=== PATIENT | female | born 1945 | race American Indian/Alaskan Native ===

== ENCOUNTER 2016-11-04 05:50 | Emergency (ER) | payer MEDICARE, MEDICAID ==
[2016-11-04 05:55] VITALS: BMI 39.4
[2016-11-04 06:13] VITALS: RESP 16; TEMP 98.1
--- NOTE | 2016-11-04 06:28 | ED PDOC ---
Arrival/HPI - General Chief Complaint: Back Pain Time Seen by Provider: 11/04/16 05:52 - History of Present Illness Narrative History of Present Illness (Text): 11/04/16 06:27 Patient presents to the ED complaining of right upper quadrant pain and back pain times several days no nausea no vomiting no fever no chills no dizziness no dysuria no chest pain some shortness of breath there was no dysuria no dizziness no headache patient currently on pain medication at home not helping Past Medical History - Provider Review Nursing Documentation Reviewed: Yes - Infectious Disease Hx of Infectious Diseases: None - Tetanus Immunization Tetanus Immunization: Unknown - Cardiac Hx Hypertension: Yes - Pulmonary Hx Chronic Obstructive Pulmonary Disease (COPD): Yes - Neurological Hx Neurological Disorder: Yes Hx Dementia: Yes Hx Seizures: Yes (25 YEARS AGO) - HEENT Hx HEENT Disorder: Yes (uses glasses) Other/Comment: RIGHT MANDIBULAR MASS - Renal Hx Renal Disorder: Yes Other/Comment: ADRENAL MASS - Endocrine/Metabolic Hx Diabetes Mellitus Type 2: Yes - Hematological/Oncological Other/Comment: Multiple Myeloma - Integumentary Hx Dermatological Disorder: No - Musculoskeletal/Rheumatological Hx Falls: No - Gastrointestinal Hx Gastrointestinal Disorders: Yes (reflux) - Genitourinary/Gynecological Hx Reproductive Disorders: No - Psychiatric Hx Psychophysiologic Disorder: Yes Hx Anxiety: Yes Hx Depression: Yes Hx Substance Use: No Other/Comment: INSOMNIA,SMOKED CIGARETTES H/O - Past Surgical History Past Surgical History: No Previous - Surgical History Hx Cardiac Catheterization: Yes - Anesthesia Hx Anesthesia: Yes Hx Anesthesia Reactions: No Hx Malignant Hyperthermia: No - Suicidal Assessment Feels Threatened In Home Enviroment: No Family/Social History - Physician Review Nursing Documentation Reviewed: Yes Family/Social History: No Known Family HX Smoking Status: Former Smoker Hx Alcohol Use: Yes (H/O OF HEAVY DRINKING. QUIT) Hx Substance Use: No Hx Substance Use Treatment: No Allergies/Home Meds Allergies/Adverse Reactions: Allergies No Known Allergies Allergy (Verified 03/08/16 14:20) Home Medications: Home Meds Medication Instructions Recorded Confirmed Aspirin [Aspirin Chewable] 81 mg PO DAILY 11/04/16 11/04/16 Atorvastatin [Lipitor] 40 mg PO HS 11/04/16 11/04/16 Benzonatate 200 mg PO TID PRN 11/04/16 11/04/16 Furosemide [Lasix] 40 mg PO DAILY 11/04/16 11/04/16 Gabapentin [Neurontin] 200 mg PO Q8H 11/04/16 11/04/16 Metoclopramide [Reglan] 5 mg PO BID 11/04/16 11/04/16 Metoprolol Tartrate [Lopressor] 25 mg PO DAILY 11/04/16 11/04/16 Montelukast Sodium [Singulair] 10 mg PO DAILY 11/04/16 11/04/16 Naloxegol Oxalate [Movantik] 25 mg PO DAILY 11/04/16 11/04/16 Oxycodone HCl/Acetaminophen 1 each PO Q6H PRN 11/04/16 11/04/16 [Percocet 10-325 mg Tablet] Pantoprazole [Protonix] 40 mg PO DAILY 11/04/16 11/04/16 Ranolazine [Ranexa] 500 mg PO BID 11/04/16 11/04/16 Zolpidem [Ambien] 10 mg PO HS PRN 11/04/16 11/04/16 amLODIPine [Norvasc] 10 mg PO DAILY 11/04/16 11/04/16 clonazePAM [clonAZEPAM] 0.5 mg PO BID 11/04/16 11/04/16 Review of Systems - Physician Review All systems were reviewed & negative as marked: Yes - Review of Systems Constitutional: Normal Eyes: Normal ENT: Normal Respiratory: SOB Cardiovascular: Chest Pain Gastrointestinal: Abdominal Pain. absent: Diarrhea, Nausea, Vomiting Genitourinary Female: Normal Musculoskeletal: Normal Skin: Normal Neurological: Normal Endocrine: Normal Hemo/Lymphatic: Normal Psychiatric: Normal Physical Exam Vital Signs Reviewed: Yes Vital Signs Temp Pulse Resp BP Pulse Ox 11/04/16 08:53 73 16 132/84 99 11/04/16 06:12 98.1 F 75 16 136/80 98 Temperature: Afebrile Blood Pressure: Normal Pulse: Regular Respiratory Rate: Normal Appearance: Positive for: Well-Appearing, Non-Toxic, Comfortable Pain Distress: None Mental Status: Positive for: Alert and Oriented X 3 - Systems Exam Head: Present: Atraumatic, Normocephalic Pupils: Present: PERRL Extroacular Muscles: Present: EOMI Conjunctiva: Present: Normal Mouth: Present: Moist Mucous Membranes Neck: Present: Normal Range of Motion Respiratory/Chest: Present: Decreased Breath Sounds. No: Good Air Exchange, Respiratory Distress, Wheezes Cardiovascular: Present: Regular Rate and Rhythm, Normal S1, S2. No: Murmurs Abdomen: Present: Tenderness (ruq ), Normal Bowel Sounds. No: Rebound, Guarding Back: Present: Normal Inspection Upper Extremity: Present: Normal Inspection. No: Cyanosis, Edema Lower Extremity: Present: Normal Inspection. No: Edema Neurological: Present: GCS=15, CN II-XII Intact, Speech Normal Skin: Present: Warm, Dry, Normal Color. No: Rashes Psychiatric: Present: Alert, Oriented x 3, Normal Insight, Normal Concentration Medical Decision Making - Lab Interpretations Lab Results: 11/04/16 06:46 Lab Results 11/04/16 08:20: pO2 257 H, VBG pH 7.44 H, VBG pCO2 58.0, VBG HCO3 39.4 H, VBG Total CO2 41.2 H, VBG O2 Sat (Calc) 97.4 H, VBG Base Excess 12.7 H, VBG Potassium 3.2 L, Sodium 141.0, Chloride 106.0, Glucose 101, Lactate 1.0, FiO2 21.0, Venous Blood Potassium 3.2 L 11/04/16 06:50: Urine Color Yellow, Urine Appearance Clear, Urine pH 8.0, Ur Specific [place] 1.015, Urine Protein Negative, Urine Glucose (UA) Negative, Urine Ketones Negative, Urine Blood Negative, Urine Nitrate Negative, Urine Bilirubin Negative, Urine Urobilinogen 0.2, Ur Leukocyte Esterase Negative 11/04/16 06:46: WBC 3.5 L, RBC 3.25 L, Hgb 9.7 L, Hct 30.5 L, MCV 93.8, MCH 29.8 , MCHC 31.8, RDW 15.7 H, Plt Count 228, MPV 10.0, Gran % 68.9 H, Lymph % (Auto) 19.2 L, [place] % (Auto) 6.2 H, Eos % (Auto) 5.4 H, Baso % (Auto) 0.3, Gran # 2.44 , Lymph # 0.7 L, [place] # 0.2, Eos # 0.2, Baso # 0.01, PT 10.5, INR 0.97, APTT 28.3, pO2 163 H, VBG pH 7.30 L, VBG pCO2 83.0 H*, VBG HCO3 40.8 H, VBG Total CO2 43.3 H, VBG O2 Sat (Calc) 97.6 H, VBG Base Excess 10.8 H, VBG Potassium 4.0 , Sodium 141.0, Chloride 103.0, Glucose 106 H, Lactate 2.3 H, FiO2 21.0, Venous Blood Potassium 4.0 - RAD Interpretation Narrative RAD Interpretations (Text): 11/04/16 06:34 cardomegaly nad Radiology Orders: 11/04/16 06:15 GALL BLADDER [US] Stat 11/04/16 06:17 CHEST PORTABLE [RAD] Stat - EKG Interpretation EKG Interpretation (Text): 11/04/16 06:32 normal sinus rhythm rate76 normal ekg - Medication Orders Current Medication Orders: Sodium Chloride (Sodium Chloride 0.9%) 1,000 mls @ 80 mls/hr IV .[id number] [id number] Last Admin: 11/04/16 08:28 Dose: 80 MLS/HR eMAR Start Stop Document 11/04/16 08:28 [facility] (Rec: 11/04/16 08:28 [id number] Intravenous Solution Start Date 11/04/16 Start Time 08:20 Discontinued Medications Hydromorphone HCl (Dilaudid) 1 mg IVP STAT STA Stop: 11/04/16 06:31 Last Admin: 11/04/16 08:25 Dose: 1 MG IVP Administration Document 11/04/16 08:25 [facility] (Rec: 11/04/16 08:29 [id number] Charges for Administration # of IVP Administrations 1 Ondansetron HCl (Zofran Inj) 4 mg IVP STAT STA Stop: 11/04/16 06:31 Last Admin: 11/04/16 08:20 Dose: 4 MG IVP Administration Document 11/04/16 08:20 [facility] (Rec: 11/04/16 08:29 [id number]) Charges for Administration # of IVP Administrations 1 Pantoprazole Sodium (Protonix Inj) 40 mg IVP ONCE STA Stop: 11/04/16 06:31 Last Admin: 11/04/16 08:22 Dose: 40 MG IVP Administration Document 11/04/16 08:22 [facility] (Rec: 11/04/16 08:29 [facility] [id number]) Charges for Administration # of IVP Administrations 1 - Transfer of Care Patient signed out to Dr:: roe us and labs and dispo Disposition/Present on Arrival - Present on Arrival Any Indicators Present on Arrival: No History of DVT/PE: No History of Uncontrolled Diabetes: No Urinary Catheter: No History of Decub. Ulcer: No History Surgical Site Infection Following: None - Disposition Have Diagnosis and Disposition been Completed?: Yes Diagnosis: Abdominal pain Disposition Time: 07:00 Patient Problems: Current Active Problems Problem Status Diagnosed CHF (congestive heart failure) Acute COPD exacerbation Acute Condition: FAIR
[2016-11-04] MEDS ORDERED: HYDROmorphone 1 mg/ml ISec IVP STA ×2 (06:30→09:04)
[2016-11-04] MEDS ORDERED: Sodium Chloride 0.9% 1,000 ML IV SCH (06:30)
[2016-11-04 06:54] LABS: ADD MANUAL DIFF? NO
[2016-11-04 06:59] LABS: VENOUS BLOOD GAS BASE EXCESS 10.8 mmol/L (0.0-2.0)
[2016-11-04 07:18] LABS: BASO # 0.01 K/mm3 (0.0-2.0); BASO % 0.3 % (0.0-3.0); EOS # 0.2 (0.0-0.7); EOS % 5.4 % (1.5-5.0); GRAN # 2.44 (1.4-6.5); GRAN % 68.9 % (50.0-68.0); HEMATOCRIT 30.5 % (36.0-48.0); LYMPH # 0.7 (1.2-3.4); LYMPH % 19.2 % (22.0-35.0); MEAN CELL VOLUME 93.8 fL (80.0-105.0); MEAN CORPUSCULAR HEMOGLOBIN 29.8 pg (25.0-35.0); MEAN CORPUSCULAR HGB CONC 31.8 g/dl (31.0-37.0); MONO # 0.2 (0.1-0.6); MONO % 6.2 % (1.0-6.0); PLATELET COUNT 228 10^3/uL (120.0-450.0); RED CELL DISTRIBUTION WIDTH 15.7 % (11.5-14.5); WHITE BLOOD COUNT 3.5 10^3/ul (4.5-11.0)
[2016-11-04 07:21] LABS: INR 0.97 (0.93-1.08); PARTIAL THROMBOPLASTIN TIME 28.3 Seconds (23.7-30.8)
[2016-11-04 07:23] LABS: URINE APPEARANCE CLEAR (CLEAR); URINE BILIRUBIN NEGATIVE (NEGATIVE); URINE BLOOD NEGATIVE (NEGATIVE); URINE COLOR YELLOW (YELLOW); URINE GLUCOSE (UA) NEGATIVE (NEGATIVE); URINE KETONE NEGATIVE (NEGATIVE); URINE LEUKOCYTE ESTERASE NEGATIVE Leu/uL (NEGATIVE); URINE PROTEIN NEGATIVE mg/dL (<30 mg/dL); URINE UROBILINOGEN 0.2 E.U./dL (<1 E.U./dL)
--- NOTE | 2016-11-04 07:44 | US ---
HISTORY: ruq pain COMPARISON: None. TECHNIQUE: Sonographic evaluation of the right upper quadrant of the abdomen. FINDINGS: LIVER: Measures 21.1 cm in length. Normal echogenicity of the liver parenchyma. No mass. No intrahepatic bile duct dilatation. GALLBLADDER: Unremarkable. No gallstones. COMMON BILE DUCT: Measures 5 mm. No stones. No dilatation. PANCREAS: Unremarkable as visualized. No mass. No ductal dilatation. RIGHT KIDNEY: Measures 11.8 cm in length. Normal cortical echogenicity. Three simple cysts identified. Mid to upper pole, 2.3 x 3.6 x 3.6 cm. Two mid renal cortical cysts, 2.7 x 2.7 x 3.0 cm and 2.5 x 2.6 x 3.3 cm. AORTA: No aneurysmal dilatation. IVC: Unremarkable. OTHER FINDINGS: None . IMPRESSION: Hepatomegaly without evidence of fatty infiltration. 3 simple right renal cortical cysts. No evidence of cholelithiasis or cholecystitis.
--- NOTE | 2016-11-04 07:49 | ED PDOC ---
Physical Exam Vital Signs Reviewed: Yes Vital Signs Temp Pulse Resp BP Pulse Ox 11/04/16 08:53 73 16 132/84 99 11/04/16 06:12 98.1 F 75 16 136/80 98 Temperature: Afebrile Blood Pressure: Normal Pulse: Regular Respiratory Rate: Normal Medical Decision Making ED Course and Treatment: 11/04/16 07:47 Patient signed out to me by Dr. Ruiz. Pending ultrasound results and re- evaluation. Patient presented with abdominal pain. Report Date: 11/04/16 07:42 Procedure: Gall bladder ultrasound Dictated By: Nelson Echevarria MD Impression: Hepatomegaly without evidence of fatty infiltration. 3 simple right renal cortical cysts. No evidence of cholelithiasis or cholecystitis. 11/04/16 09:06 On reevaluation, patient continues to have pain of her RUQ and epigastric area. She has tenderness with guarding. No peritoneal signs. Does not appear clinically like an acute abdomen. Patient states she also has upper back pain that she's had for several months on and off. It's achy and exacerbated by pain. She takes oxycodone at home for pain. She states that is bothering her right now as well. On exam she has tenderness to her upper back. No fever, numbness, weakness, or chills. No vomiting in ED. CT ordered and pending. PO potassium ordered for low potassium. 11/04/16 12:32 Dr. Naheed Rowland came to evaluate patient and gave her prescription for physical therapy and other services to help with her chronic back pain. Patient was able to walk some steps with assistance by me. She states she mostly uses her wheelchair. She agrees to follow up plan. I discussed case with Dr. Perez who will see her as an outpatient. Dr. Perez states that the renal findings are old and he has worked them up. Patient is aware of all CT findings. Transportation was arranged for patient. - Lab Interpretations Lab Results: 11/04/16 06:46 11/04/16 08:20 Lab Results 11/04/16 08:20: pO2 257 H, VBG pH 7.44 H, VBG pCO2 58.0, VBG HCO3 39.4 H, VBG Total CO2 41.2 H, VBG O2 Sat (Calc) 97.4 H, VBG Base Excess 12.7 H, VBG Potassium 3.2 L, Glucose 101, Lactate 1.0, FiO2 21.0, Sodium 141.0, Potassium 3.2 L, Chloride 106.0, Carbon Dioxide 36 H, Anion Gap 10, BUN 9, Creatinine 1.2 , Est GFR ( Amer) 54, Est GFR (Non-Af Amer) 45, Random Glucose 99, Calcium 8.5, Total Bilirubin 0.5, AST 14 L, ALT 18, Alkaline Phosphatase 47, Lactate Dehydrogenase 344, Total Creatine Kinase 64, Troponin I 0.02 D, Total Protein 6.4, Albumin 3.4, Globulin 3.0, Albumin/Globulin Ratio 1.1, Amylase 65, Lipase 20 L, Venous Blood Potassium 3.2 L 11/04/16 06:50: Urine Color Yellow, Urine Appearance Clear, Urine pH 8.0, Ur Specific [place] 1.015, Urine Protein Negative, Urine Glucose (UA) Negative, Urine Ketones Negative, Urine Blood Negative, Urine Nitrate Negative, Urine Bilirubin Negative, Urine Urobilinogen 0.2, Ur Leukocyte Esterase Negative 11/04/16 06:46: WBC 3.5 L, RBC 3.25 L, Hgb 9.7 L, Hct 30.5 L, MCV 93.8, MCH 29.8 , MCHC 31.8, RDW 15.7 H, Plt Count 228, MPV 10.0, Gran % 68.9 H, Lymph % (Auto) 19.2 L, [place] % (Auto) 6.2 H, Eos % (Auto) 5.4 H, Baso % (Auto) 0.3, Gran # 2.44 , Lymph # 0.7 L, [place] # 0.2, Eos # 0.2, Baso # 0.01, PT 10.5, INR 0.97, APTT 28.3, pO2 163 H, VBG pH 7.30 L, VBG pCO2 83.0 H*, VBG HCO3 40.8 H, VBG Total CO2 43.3 H, VBG O2 Sat (Calc) 97.6 H, VBG Base Excess 10.8 H, VBG Potassium 4.0 , Glucose 106 H, Lactate 2.3 H, FiO2 21.0, Sodium 141.0, Chloride 103.0, Venous Blood Potassium 4.0 - RAD Interpretation Radiology Orders: 11/04/16 06:15 GALL BLADDER [US] Stat 11/04/16 06:17 CHEST PORTABLE [RAD] Stat 11/04/16 09:03 ABD & PELVIS IV CONTRAST ONLY [CT] Stat - Medication Orders Current Medication Orders: Hydromorphone HCl (Dilaudid) 1 mg IVP STAT STA Stop: 11/04/16 09:05 Sodium Chloride (Sodium Chloride 0.9%) 1,000 mls @ 80 mls/hr IV .[id number] LILI Last Admin: 11/04/16 08:28 Dose: 80 MLS/HR eMAR Start Stop Document 11/04/16 08:28 [facility] (Rec: 11/04/16 08:28 [id number][facility] Intravenous Solution Start Date 11/04/16 Start Time 08:20 Discontinued Medications Hydromorphone HCl (Dilaudid) 1 mg IVP STAT STA Stop: 11/04/16 06:31 Last Admin: 11/04/16 08:25 Dose: 1 MG IVP Administration Document 11/04/16 08:25 [facility] (Rec: 11/04/16 08:29 [id number]) Charges for Administration # of IVP Administrations 1 Ondansetron HCl (Zofran Inj) 4 mg IVP STAT STA Stop: 11/04/16 06:31 Last Admin: 11/04/16 08:20 Dose: 4 MG IVP Administration Document 11/04/16 08:20 [facility] (Rec: 11/04/16 08:29 [facility]-[id number]) Charges for Administration # of IVP Administrations 1 Pantoprazole Sodium (Protonix Inj) 40 mg IVP ONCE STA Stop: 11/04/16 06:31 Last Admin: 11/04/16 08:22 Dose: 40 MG IVP Administration Document 11/04/16 08:22 [facility] (Rec: 11/04/16 08:29 [id number]) Charges for Administration # of IVP Administrations 1 - Scribe Statement The provider has reviewed the documentation as recorded by the Phiibfelisa Neville Provider Scribe Attestation: All medical record entries made by the Scribe were at my direction and personally dictated by me. I have reviewed the chart and agree that the record accurately reflects my personal performance of the history, physical exam, medical decision making, and the department course for this patient. I have also personally directed, reviewed, and agree with the discharge instructions and disposition. Disposition/Present on Arrival - Present on Arrival Any Indicators Present on Arrival: No History of DVT/PE: No History of Uncontrolled Diabetes: No Urinary Catheter: No History of Decub. Ulcer: No History Surgical Site Infection Following: None - Disposition Have Diagnosis and Disposition been Completed?: Yes Diagnosis: Abdominal pain, Back pain Disposition: HOME/ ROUTINE Disposition Time: 10:45 Patient Plan: Discharge Patient Problems: Current Active Problems Problem Status Diagnosed Abdominal pain Acute Back pain Acute CHF (congestive heart failure) Acute COPD exacerbation Acute Condition: IMPROVED Additional Instructions: Ms. Hong West, thank you for letting us take care of you today. Your provider was Dr. Vyas. You were treated for Abdominal Pain, Back Pain. The emergency medical care you received today was directed at your acute symptoms. If you were prescribed any medication, please fill it and take as directed. It may take several days for your symptoms to resolve. Return to the Emergency Department if your symptoms worsen, do not improve, or if you have any other problems. Please contact your doctor or call one of the physicians/clinics you have been referred to that are listed on the Patient Visit Information form that is included in your discharge packet. Bring any paperwork you were given at discharge with you along with any medications you are taking to your follow up visit. Our treatment cannot replace ongoing medical care by a primary care provider (PCP) outside of the emergency department. Thank you for allowing the [facility] team to be part of your care today. If you had an X-Ray or CT scan: A Radiologist will review the ED reading if any change in treatment is needed we will contact you. If you had a blood, urine, or wound culture: It will take several days for the results, if any change in treatment is needed we will contact you. If you had an STI test: It will take 48 hours for the results. Please call after 1 week if you have not heard back. Referrals: Farhan Perez MD [Family Provider] - Follow up with primary Forms: WORK NOTE
[2016-11-04 08:39] LABS: VENOUS BLOOD GAS BASE EXCESS 12.7 mmol/L (0.0-2.0); VENOUS BLOOD PH 7.44 (7.32-7.43)
[2016-11-04 08:54] VITALS: BP 132/84; PULSE 73; O2SAT 99
[2016-11-04 08:54] LABS: ALB/GLOB RATIO 1.1 (1.1-1.8); BILIRUBIN,TOTAL 0.5 mg/dL (0.2-1.3); CALCIUM 8.5 mg/dL (8.4-10.5); POTASSIUM 3.2 mmol/L (3.6-5.0); TOTAL PROTEIN 6.4 g/dL (5.8-8.3)
[2016-11-04 09:03] LABS: TROPONIN I 0.02 ng/mL
[2016-11-04] MEDS ORDERED: Potassium Chloride 20 mEq ER Tab PO STA (09:05)
--- NOTE | 2016-11-04 09:07 | RAD ---
HISTORY: cp COMPARISON: No prior. 03/08/2016 FINDINGS: LUNGS: No active pulmonary disease. PLEURA: No significant pleural effusion identified, no pneumothorax apparent. CARDIOVASCULAR: Normal. OSSEOUS STRUCTURES: Status post multilevel thoracic spinal fixation with pedicle screws and rods. VISUALIZED UPPER ABDOMEN: Normal. OTHER FINDINGS: None. IMPRESSION: No active disease.
--- NOTE | 2016-11-04 10:14 | CT ---
PROCEDURE: CT Abdomen and Pelvis without intravenous contrast HISTORY: abd pain COMPARISON: None. TECHNIQUE: Without contrast.. Contrast Dose: 0 Radiation dose: Total exam DLP = 1636.86 mGy-cm. This CT exam was performed using one or more of the following dose reduction techniques: Automated exposure control, adjustment of the mA and/or kV according to patient size, and/or use of iterative reconstruction technique. FINDINGS: LOWER THORAX: Unremarkable. LIVER: Unremarkable. No gross lesion or ductal dilatation. GALLBLADDER AND BILE DUCTS: Unremarkable. PANCREAS: Unremarkable. No gross lesion or ductal dilatation. SPLEEN: Unremarkable. ADRENALS: Left suprarenal mass, likely an adrenal origin, unchanged compared to prior examinations. It is heterogeneous in attenuation with a rounded higher attenuation region in the superior aspect of the mass. The mass measures 7.9 x 7 point 2 x 8.1 cm, essentially unchanged. There are punctate calcifications seen in portions of the mass. This displaces the left kidney inferiorly. The right adrenal is unremarkable. KIDNEYS AND URETERS: Unremarkable left kidney, aside from inferior displacement by the suprarenal mass. In the right kidney, comparison is made to prior postcontrast study 03/08 2016 and 02/04/2016. It appears that there are several renal cortical/ parapelvic cysts, unchanged. There is 1 low-density mass seen on prior contrast study which is higher density than the other cysts. It measured 33 Hounsfield units at that time. It is isodense to renal parenchyma on the current noncontrast study, measuring 28 Hounsfield units, essentially unchanged. This is suspicious for renal mass versus hyperdense cyst. Correlation with renal ultrasound is suggested to exclude renal neoplasm. VASCULATURE: Unremarkable. No aortic aneurysm. BOWEL: Sigmoid diverticulosis. No evidence of diverticulitis. Mild retained feces. No bowel obstruction. APPENDIX: Unremarkable. Normal appendix. PERITONEUM: Unremarkable. No free fluid. No free air. LYMPH NODES: Unremarkable. No enlarged lymph nodes. BLADDER: Unremarkable. REPRODUCTIVE: Uterus significant for coarsely calcified left-sided uterine fibroid. BONES: No fracture. Multilevel lumbar degenerative disc disease. Lumbar levoscoliosis. OTHER FINDINGS: None. IMPRESSION: No acute abnormality. Stable left suprarenal mass, likely adrenal, 8.1 cm greatest dimension. Questionable hyperdense right renal cyst versus solid mass. Evaluation with renal ultrasound examination is advised. Additional right renal cortical/ parapelvic cysts are noted without interval change.
--- NOTE | 2016-11-04 11:37 | CARD ---
APPROVED REPORT EKG Measurement Heart [id number] <Conclusion> Normal sinus rhythm NSSTW changes, new
--- NOTE | 2016-11-04 14:03 | CON ---
DATE: 11/04/2016 CHIEF COMPLAINT: Back pain. HISTORY OF PRESENT ILLNESS: This is a 71-year-old -[place] woman with past medical history o f morbid obesity, hypertension, type 2 diabetes mellitus, chronic kidney disease, coronary artery dis ease, multiple myeloma, congestive heart failure, chronic obstructive pulmonary disease, history of c hronic back pain, history of chronic lumbosacral radiculopathy, history of old T6 pathological fractu re with retropulsion of the bone, history of a right L3-L4, L4-L5 significant stenosis and disk protr usion, history of decompressive laminectomy T5-T6 and posterior spinal fusion of T4-T8 ____ and decom pressive laminectomy L3-S1, excision of herniated disk L3-4 on 08/19/2015 who came in with abdominal p ain and right upper pain without any guarding. Gallbladder ultrasounds of hepatomegaly without any i nfiltrates. CT abdomen was pretty much unremarkable. She just has bone pain and generalized arthrit is. She is moving all extremities. She has not gone to physical therapy for low back pain. PAST MEDICAL HISTORY: History of coronary artery disease, morbid obesity, chronic kidney disease, mu ltiple myeloma, congestive heart failure, chronic obstructive pulmonary disease, history of chronic l umbosacral radiculopathy, history of T6 pathological fracture, status post 08/19/2015 decompressive la minectomy at T5-T6 posterior fusion at T4-T8, biopsy T6 body, decompressive laminectomy L3-S1 and exc ision of herniated disk at L3-L4. REVIEW OF SYSTEMS: A 14-point review of systems is negative except for in the HPI. MEDICATIONS: Reviewed via nurse's reconciliation sheet. ALLERGIES: No known drug allergies. SOCIAL HISTORY: No illicit drug use, smoking, or ETOH abuse. FAMILY HISTORY: Noncontributory. PHYSICAL EXAMINATION: VITAL SIGNS: Temperature 98.1, pulse rate is 75, respiratory rate 16, blood pressure 136/80, respira tory rate, 98% on room air. GENERAL: The patient is sitting up in bed in no acute distress. HEENT: Atraumatic, normocephalic. PERRLA. Extraocular muscles intact. NECK: Supple, no JVD, no adenopathy noted. LUNGS: Clear to auscultation. No adventitious sounds. HEART: S1, S2, normal rate and rhythm. No murmurs, rubs, or gallops. ABDOMEN: Soft, nontender, nondistended. Bowel sounds are present. EXTREMITIES: No clubbing, no cyanosis. Peripheral pulses 2+ bilaterally is 1+ bilateral pitting myriam ma. NEUROLOGIC: The patient is alert, oriented to person, place, month and year. Speech is fluent, with out any errors. Cranial nerves II through XII are intact. MOTOR: Upper extremities 5/5 in both, lower extremities is 5-/5, which is her baseline. SENSORY: Decreased light touch and pinprick up to the calves bilaterally, DTRs 1+ and absent at the knees and ankles. COORDINATION: Fvsrke-et-pyao intact. GAIT: Deferred for now. LABORATORIES: Sodium 140, potassium 3.2, chloride of 97, carbon dioxide 36, BUN of 9, creatinine 1.2 , random glucose 99. ASSESSMENT AND PLAN: This is a 71-year-old -[place] woman with history of multiple myeloma, morbid obesity, congestive heart failure, type 2 diabetes mellitus, chronic kidney disease, hypertens ion, history of chronic back pain, chronic lumbosacral radiculopathy status post decompressive michele ctomy of T5-T6 and posterior spinal fusion T4-T8, and biopsy of T6 body for pathological fracture of T6 body and decompressive laminectomy at L3-S1 and excision of herniated disk L3-L4 who came with abd ominal pain and epigastric pain and was evaluated. A CT abdomen showed no acute abnormality. Curren tly, she does not have any acute abdomen and no peritoneal signs and it is likely maybe she has under lying gastroesophageal reflux disease. Her potassium was low, which was replaced. I was called to s for low back pain. Low back pain is secondary to deconditioned state and chronic lumbosacral radi culopathy status post surgery. 1. At this time, I feel like she just needs to be on gabapentin at least anywhere from 200 to 400 mg p.o. b.i.d. for neuropathic pain. 2. Will need physical therapy in terms of myofascial pain release techniques, lumbosacral exercises and deconditioning and gait and balance exercises as an outpatient. At this time, she is clinically stable from my standpoint. We will follow up as an outpatient. Raimundo Rowland MD cc: [id number] TT: 11/04/2016 14:02:53 Confirmation # [id number] Dictation # [id number]
== END 2016-11-04 16:45 | disposition home or self-care (01) ==
LOC: ED 05:50
DX: R10.9 Unspecified abdominal pain (principal); M54.9 Dorsalgia, unspecified; E11.9 Type 2 diabetes mellitus without complications; J44.9 Chronic obstructive pulmonary disease, unspecified; E66.01 Morbid (severe) obesity due to excess calories; I25.10 Atherosclerotic heart disease of native coronary artery without angina pectoris
CPT/HCPCS: 71010; 74176; 76705; 80053; 81003; 82150; 82550; 82803; 83615; 83690; 84484; 85025; 85610; 85730; 87040; 87086; 93005; 96374; 96375; 96376; 99283; C9113; J1170; J2405; J7040

== ENCOUNTER 2016-12-04 07:38 | Inpatient (IN) | payer MEDICARE, MEDICAID ==
[2016-12-04 07:42] VITALS: BMI 32.8
--- NOTE | 2016-12-04 07:54 | ED PDOC ---
Arrival/HPI - General Chief Complaint: Shortness Of Breath Time Seen by Provider: 12/04/16 07:48 Historian: Patient, EMS - History of Present Illness Narrative History of Present Illness (Text): 12/04/16 07:53 71 year old female whose past medical history includes COPD on home O2, CHF, multiple myeloma, presents to the emergency department with shortness of breath. EMS reports they gave solu-medrol and breathing treatment. Patient denies fever or other complaints. PMD: Dr. Daniel Time/Duration: 24 hours Symptom Onset: Gradual Symptom Course: Unchanged Associated Symptoms (Text): None Past Medical History - Provider Review Nursing Documentation Reviewed: Yes - Infectious Disease Hx of Infectious Diseases: None - Tetanus Immunization Tetanus Immunization: Unknown - Reproductive Menopause: Yes - Cardiac Hx Hypertension: Yes - Pulmonary Hx Chronic Obstructive Pulmonary Disease (COPD): Yes - Neurological Hx Neurological Disorder: Yes Hx Dementia: Yes Hx Seizures: Yes (25 YEARS AGO) - HEENT Hx HEENT Disorder: Yes (uses glasses) Other/Comment: RIGHT MANDIBULAR MASS - Renal Hx Renal Disorder: Yes Other/Comment: ADRENAL MASS - Endocrine/Metabolic Hx Diabetes Mellitus Type 2: Yes - Hematological/Oncological Other/Comment: Multiple Myeloma - Integumentary Hx Dermatological Disorder: No - Musculoskeletal/Rheumatological Hx Falls: No - Gastrointestinal Hx Gastrointestinal Disorders: Yes (reflux) - Genitourinary/Gynecological Hx Reproductive Disorders: No - Psychiatric Hx Psychophysiologic Disorder: Yes Hx Anxiety: Yes Hx Depression: Yes Hx Substance Use: No Other/Comment: INSOMNIA,SMOKED CIGARETTES H/O - Past Surgical History Past Surgical History: No Previous - Surgical History Hx Cardiac Catheterization: Yes - Anesthesia Hx Anesthesia: Yes Hx Anesthesia Reactions: No Hx Malignant Hyperthermia: No - Suicidal Assessment Feels Threatened In Home Enviroment: No Family/Social History - Physician Review Nursing Documentation Reviewed: Yes Family/Social History: Unknown Family HX Smoking Status: Former Smoker Hx Alcohol Use: Yes (H/O OF HEAVY DRINKING. QUIT) Hx Substance Use: No Hx Substance Use Treatment: No Allergies/Home Meds Allergies/Adverse Reactions: Allergies No Known Allergies Allergy (Verified 03/08/16 14:20) Home Medications: Home Meds Medication Instructions Recorded Confirmed Furosemide [Lasix] 40 mg PO BID 11/04/16 12/04/16 Gabapentin [Neurontin] 100 mg PO Q8H 11/04/16 12/04/16 Metoclopramide [Reglan] 5 mg PO BID 11/04/16 12/04/16 Metoprolol Tartrate [Lopressor] 25 mg PO DAILY 11/04/16 12/04/16 Oxycodone HCl/Acetaminophen 10 mg PO Q6H PRN 11/04/16 12/04/16 [Percocet 10-325 mg Tablet] Pantoprazole [Protonix] 40 mg PO DAILY 11/04/16 12/04/16 Ranolazine [Ranexa] 500 mg PO BID 11/04/16 12/04/16 clonazePAM [clonAZEPAM] 0.5 mg PO BID 11/04/16 12/04/16 Albuterol HFA [Ventolin HFA 90 0.09 mg IH QID 12/04/16 12/04/16 mcg/actuation (8 g)] Albuterol/Ipratropium [Duoneb 3 3 ml IH QID 12/04/16 12/04/16 MG/3 Ml-0.5 MG/3 Ml 3 Ml] Atorvastatin [Lipitor] 40 mg PO HS 12/04/16 12/04/16 Dexlansoprazole [Dexilant] 30 mg PO DAILY 12/04/16 12/04/16 Fentanyl [Fentanyl] 100 mcg TOP Q72 12/04/16 12/04/16 Lenalidomide [Revlimid] 10 mg PO DAILY 12/04/16 12/04/16 Naloxegol Oxalate [Movantik] 25 mg PO DAILY 12/04/16 12/04/16 Nitroglycerin 0.6 mg/hr 0.6 mg TD DAILY 12/04/16 12/04/16 [Nitroglycerin Transdermal System] Potassium 10 10 meq PO TID 12/04/16 12/04/16 Review of Systems - Physician Review All systems were reviewed & negative as marked: Yes - Review of Systems Constitutional: absent: Fevers Respiratory: absent: SOB Cardiovascular: absent: Chest Pain Gastrointestinal: absent: Vomiting Physical Exam - Physical Exam Narrative Physical Exam (Text): Constitutional: No acute distress. Head: Normocephalic. Atraumatic. Eyes: PERRL. ENT: Moist mucous membranes. Neck: Supple. Cardiovascular: Regular rate. Chest: No tenderness. Respiratory: Expiratory wheeze bilaterally. No respiratory distress. GI: Soft. Nontender. Nondistended. Back: No CVA tenderness. Musculoskeletal: No tenderness or swelling of extremities. Skin: No rash. Neurologic: Alert, no focal deficit. Vital Signs Reviewed: Yes Vital Signs Temp Pulse Resp BP Pulse Ox 12/04/16 10:48 80 18 159/92 H 96 12/04/16 07:39 98.5 F 72 20 154/82 H 97 Temperature: Afebrile Blood Pressure: Normal Pulse: Regular Respiratory Rate: Normal Appearance: Positive for: Well-Appearing, Non-Toxic, Comfortable Pain Distress: None Mental Status: Positive for: Alert and Oriented X 3 Medical Decision Making ED Course and Treatment: Impression: 71 year old female whose past medical history includes COPD on home O2, CHF, multiple myeloma, presents to the emergency department with shortness of breath. Differential Diagnosis include but are not limited to: Asthma vs COPD exacerbation Plan: -- Chest X-ray -- Duoneb -- Labs -- Reassess and disposition Prior Visits: Notes and results from previous visits were reviewed. Patient last admitted to the hospital on 03/08/16 for COPD exacerbation, CHF. Progress Notes: 12/04/16 08:00 EKG shows NSR at [address]/T wave changes. Interpreted by me. PROCEDURE: CHEST RADIOGRAPH, 1 VIEW Transfusion Nurse : Thuan Diallo MD Report Date : 12/04/2016 08:31:08 IMPRESSION: Bibasilar atelectatic changes. Slightly limited evaluation due to suboptimal patient positioning and motion. Patient continues to have wheezing and shortness of breath. 12/04/16 10:[address] Sachin Daniel who accepts to telemetry - Lab Interpretations Lab Results: 12/04/16 08:00 12/04/16 08:00 Lab Results 12/04/16 08:00: Sodium 143, Potassium 3.9, Chloride 100, Carbon Dioxide 34 H, Anion Gap 13, BUN 12, Creatinine 1.3, Est GFR ( Amer) 49, Est GFR (Non- Af Amer) 41, Random Glucose 125 H, Calcium 9.3, Total Bilirubin 0.7, AST 18, ALT 23, Alkaline Phosphatase 53, Total Protein 7.2, Albumin 4.0, Globulin 3.3, Albumin/Globulin Ratio 1.2 12/04/16 08:00: PT 10.7, INR 0.99, APTT 27.7 12/04/16 08:00: WBC 4.5 D, RBC 3.75, Hgb 10.9 L, Hct 34.6 L, MCV 92.3, MCH 29.1 , MCHC 31.5, RDW 14.6 H, Plt Count 182, MPV 9.8, Gran % 73.2 H, Lymph % (Auto) 17.9 L, Talbot % (Auto) 6.9 H, Eos % (Auto) 1.8, Baso % (Auto) 0.2, Gran # 3.27, Lymph # 0.8 L, Talbot # 0.3, Eos # 0.1, Baso # 0.01 - RAD Interpretation Radiology Orders: 12/04/16 08:00 CHEST PORTABLE [RAD] Stat - EKG Interpretation Interpreted by ED Physician: Yes Type: 12 lead EKG - Medication Orders Current Medication Orders: Discontinued Medications Albuterol/Ipratropium (Duoneb 3 Mg/0.5 Mg (3 Ml) Ud) 3 ml IH Q15M STA Stop: 12/04/16 08:01 Last Admin: 12/04/16 08:19 Dose: 3 ml Ondansetron HCl (Zofran Inj) 4 mg IVP STAT STA Stop: 12/04/16 10:34 Last Admin: 12/04/16 10:49 Dose: 4 mg - Scribe Statement The provider has reviewed the documentation as recorded by the Jennifer Patel Provider Scribe Attestation: All medical record entries made by the Jennifer were at my direction and personally dictated by me. I have reviewed the chart and agree that the record accurately reflects my personal performance of the history, physical exam, medical decision making, and the department course for this patient. I have also personally directed, reviewed, and agree with the discharge instructions and disposition. Disposition/Present on Arrival - Present on Arrival Any Indicators Present on Arrival: No History of DVT/PE: No History of Uncontrolled Diabetes: No Urinary Catheter: No History of Decub. Ulcer: No History Surgical Site Infection Following: None - Disposition Have Diagnosis and Disposition been Completed?: Yes Diagnosis: COPD exacerbation Disposition: HOSPITALIZED Disposition Time: 20:41 Patient Plan: Telemetry Condition: FAIR
[2016-12-04] MEDS ORDERED: Albuterol-Ipratrop 3 mg / 0.5 (3 ml) UD IH STA (08:00)
[2016-12-04 08:20] LABS: ADD MANUAL DIFF? NO
[2016-12-04 08:28] LABS: BASO # 0.01 K/mm3 (0.0-2.0); BASO % 0.2 % (0.0-3.0); EOS # 0.1 (0.0-0.7); EOS % 1.8 % (1.5-5.0); GRAN # 3.27 (1.4-6.5); GRAN % 73.2 % (50.0-68.0); HEMATOCRIT 34.6 % (36.0-48.0); LYMPH # 0.8 (1.2-3.4); LYMPH % 17.9 % (22.0-35.0); MEAN CELL VOLUME 92.3 fL (80.0-105.0); MEAN CORPUSCULAR HEMOGLOBIN 29.1 pg (25.0-35.0); MEAN CORPUSCULAR HGB CONC 31.5 g/dl (31.0-37.0); MEAN PLATELET VOLUME 9.8 fl (7.0-11.0); MONO # 0.3 (0.1-0.6); MONO % 6.9 % (1.0-6.0); PLATELET COUNT 182 10^3/uL (120.0-450.0); RED CELL DISTRIBUTION WIDTH 14.6 % (11.5-14.5); WHITE BLOOD COUNT 4.5 10^3/ul (4.5-11.0)
--- NOTE | 2016-12-04 08:33 | RAD ---
PROCEDURE: CHEST RADIOGRAPH, 1 VIEW HISTORY: dyspnea COMPARISON: 11/04/2016 FINDINGS: LUNGS: Bibasilar atelectatic changes. PLEURA: No pneumothorax or pleural fluid seen.Biapical pleural parenchymal thickening noted. CARDIOVASCULAR: Enlarged heart, stable. OSSEOUS STRUCTURES: The osseous structures demonstrate degenerative changes. VISUALIZED UPPER ABDOMEN: Upper abdomen is suboptimally evaluated. OTHER FINDINGS: Spinal orthopedic hardware noted again. IMPRESSION: Bibasilar atelectatic changes. Slightly limited evaluation due to suboptimal patient positioning and motion.
[2016-12-04 08:34] LABS: INR 0.99 (0.93-1.08); PARTIAL THROMBOPLASTIN TIME 27.7 Seconds (23.7-30.8)
[2016-12-04 08:36] LABS: ALB/GLOB RATIO 1.2 (1.1-1.8); BILIRUBIN,TOTAL 0.7 mg/dL (0.2-1.3); CALCIUM 9.3 mg/dL (8.4-10.5); POTASSIUM 3.9 mmol/L (3.6-5.0); TOTAL PROTEIN 7.2 g/dL (5.8-8.3)
[2016-12-04] MEDS: Albuterol-Ipratrop 3 mg / 0.5 (3 ml) UD IH SCH ×4 (15:05→23:30)
[2016-12-04] MEDS ORDERED: Oxycodone/Acetaminophen 10/325 mg Tab PO PRN (16:59)
[2016-12-04] MEDS: Potassium Chloride 10 mEq ER Tab PO SCH (17:45)
[2016-12-04] MEDS: Nitroglycerin 0.6 mg/hr Top Patch TD SCH (17:49)
[2016-12-04] MEDS: RANEXA 500 MG PO SCH (17:51)
[2016-12-04] MEDS: DEXILANT PO SCH (17:51)
[2016-12-04] MEDS: Oxycodone/Acetaminophen 10/325 mg Tab PO PRN (17:57)
[2016-12-04] MEDS ORDERED: Albuterol 0.5% Inhal Sol (2.5 mg/0.5 ml) UD IH SCH ×2 (18:00)
[2016-12-04] MEDS ORDERED: Albuterol 0.5% Inhal Sol (2.5 mg/0.5 ml) UD IH PRN (18:00)
[2016-12-04] MEDS ORDERED: Albuterol-Ipratrop 3 mg / 0.5 (3 ml) UD IH SCH (18:00)
[2016-12-04] MEDS ORDERED: guaiFENesin DM 100 mg-10 mg/5 ml UD PO PRN (19:24)
[2016-12-05] MEDS ORDERED: Magnesium Hydroxide Susp 30 ml UD PO STA (02:13)
--- NOTE | 2016-12-05 02:20 | CP.PCM.PN ---
Subjective - Date & Time of Evaluation Date of Evaluation: 12/05/16 Time of Evaluation: 02:14 - Subjective Subjective: Patient is complaining of abdominal discomfort. States that she has not had bowel movement for 5-6 days. She used to have small, hard bowel movement at home.MOM does not help.Takes dulcolax suppository which helps her. Has no nausea, vomiting , abdominal pain. Medical record was reviewed. This 71 year old woman was admitted dyspnea, difficulty in walking, weakness/ exacerbation of CHF. Has PMH of CHF, HTN,anemia, multiple myeloma, DJD spine, obesity. Objective - Vital Signs/Intake and Output Vital Signs (last 24 hours): Temp Pulse Resp BP Pulse Ox 98.9 F 74 19 155/91 H 96 12/05/16 00:01 12/05/16 00:01 12/05/16 00:01 12/05/16 00:01 12/04/16 10:48 Intake and Output: 12/04/16 12/05/16 18:59 06:59 Intake Total 1200 Balance 1200 - Medications Medications: Current Medications Albuterol Sulfate (Albuterol 0.5% Inhal Hina (2.5 Mg/0.5 Ml) Ud) 2.5 mg IH QID PRN PRN Reason: SHORT OF BREATH Albuterol/Ipratropium (Duoneb 3 Mg/0.5 Mg (3 Ml) Ud) 3 ml IH [id number] [facility] Last Admin: 12/04/16 20:50 Dose: 3 ml Amlodipine Besylate (Norvasc) 5 mg PO DAILY [facility]IL[facility] Last Admin: 12/04/16 13:30 Dose: 5 mg Atorvastatin Calcium (Lipitor) 40 mg PO HS [facility] Last Admin: 12/04/16 21:25 Dose: 40 mg Clonazepam (Klonopin) 0.5 mg PO BID [facility] PRN Reason: Protocol Last Admin: 12/04/16 17:45 Dose: 0.5 mg Fentanyl (Duragesic) 100 patch TD Q72 [facility] Furosemide (Lasix) 40 mg PO BID [facility] Last Admin: 12/04/16 17:45 Dose: 40 mg Gabapentin (Neurontin) 100 mg PO Q8 [facility] PRN Reason: Protocol Guaifenesin/Dextromethorphan (Robitussin Dm) 5 ml PO Q6H PRN PRN Reason: Cough Last Admin: 12/04/16 21:25 Dose: 5 ml Home Med (Home Med) 30 unit PO DAILY [facility] Last Admin: 12/04/16 17:51 Dose: Not Given Home Med (Home Med) 10 unit PO DAILY [facility] Home Med (Home Med) 1 unit PO DAILY [facility] Home Med (Home Med) 500 unit PO BID [facility] Last Admin: 12/04/16 17:51 Dose: Not Given Metoclopramide HCl (Reglan) 5 mg PO BID [facility] Last Admin: 12/04/16 17:45 Dose: 5 mg Metoprolol Tartrate (Lopressor) 25 mg PO DAILY [facility] Last Admin: 12/04/16 17:49 Dose: 25 mg Nitroglycerin (Nitro-Dur 0.6 Mg/Hr Patch) 1 patch TD DAILY [facility] Last Admin: 12/04/16 17:49 Dose: 1 patch Oxycodone/Acetaminophen (Percocet 10/325 Mg Tab) 1 tab PO Q6H PRN PRN Reason: severe pain Last Admin: 12/04/16 17:57 Dose: 1 tab Potassium Chloride (Klor-Con 10) 10 meq PO TID [facility] Last Admin: 12/04/16 17:45 Dose: 10 meq - Labs Labs: PT 10.7 Seconds (9.9-11.8) 12/04/16 08:00 INR 0.99 (0.93-1.08) 12/04/16 08:00 APTT 27.7 Seconds (23.7-30.8) 12/04/16 08:00 - Constitutional Appears: Well, No Acute Distress - Head Exam Head Exam: ATRAUMATIC, NORMAL INSPECTION, NORMOCEPHALIC - Eye Exam Eye Exam: Normal appearance - ENT Exam ENT Exam: Normal External Ear Exam - Neck Exam Neck Exam: Normal Inspection - Respiratory Exam Respiratory Exam: NORMAL BREATHING PATTERN - Cardiovascular Exam Cardiovascular Exam: absent: JVD - GI/Abdominal Exam GI & Abdominal Exam: Soft, Normal Bowel Sounds. absent: Distended, Tenderness - Rectal Exam Rectal Exam: Deferred - Extremities Exam Extremities Exam: Normal Inspection - Back Exam Back Exam: NORMAL INSPECTION - Neurological Exam Neurological Exam: Alert, Oriented x3 - Psychiatric Exam Psychiatric exam: Normal Affect, Normal Mood - Skin Skin Exam: Normal Color Assessment and Plan - Assessment and Plan (Free Text) Assessment: A/P:Constipation. CHF exacerbation. HTN. Obesity. Anemia. Multiple myeloma. DJD of spine. Continue present management. Dulcolax suppository.
[2016-12-05] MEDS: Albuterol-Ipratrop 3 mg / 0.5 (3 ml) UD IH SCH ×6 (02:55→23:00)
[2016-12-05] MEDS: Potassium Chloride 10 mEq ER Tab PO SCH ×3 (09:49→17:59)
[2016-12-05] MEDS: Nitroglycerin 0.6 mg/hr Top Patch TD SCH (09:56)
[2016-12-05] MEDS ORDERED: Pantoprazole 40 mg EC Tab PO SCH (10:00)
[2016-12-05] MEDS: DEXILANT PO SCH (10:02)
[2016-12-05] MEDS: RANEXA 500 MG PO SCH (10:02)
[2016-12-05] MEDS: MOVANTIK 25 MG PO SCH (10:02)
[2016-12-05] MEDS: REVLIMID 10 MG PO SCH (10:03)
--- NOTE | 2016-12-05 11:31 | CARD ---
APPROVED REPORT EKG Measurement Heart [id number] [id number] <Conclusion> Normal sinus rhythm Improved repolarization changes c/w earlier ECG
[2016-12-05 12:23] VITALS: RESP 20
[2016-12-05] MEDS: POLYETHYLENE GLYCOL 3350 17 GM/Dose PACKET PO SCH ×2 (12:36→18:00)
[2016-12-05] MEDS: Oxycodone/Acetaminophen 10/325 mg Tab PO PRN ×2 (12:37→20:13)
--- NOTE | 2016-12-06 00:03 | CP.PCM.PN ---
Subjective - Date & Time of Evaluation Date of Evaluation: 12/06/16 Time of Evaluation: 00:02 - Subjective Subjective: Patient was seen at bedside. She complained that she can not breathe and wants to sit in a chair. States that she feels nervous. Has no other complaints. BP 168/102 Pertinent medical record was reviewed. his 71 year old woman was admitted dyspnea, difficulty in walking, weakness/ exacerbation of CHF. Has PMH of CHF, HTN,anemia, multiple myeloma, DJD spine, obesity. Objective - Vital Signs/Intake and Output Vital Signs (last 24 hours): Temp Pulse Resp BP Pulse Ox 99.5 F 78 20 139/77 96 12/05/16 18:00 12/05/16 18:00 12/05/16 18:00 12/05/16 18:00 12/05/16 06:00 Intake and Output: 12/05/16 12/06/16 18:59 06:59 Intake Total 300 Balance 300 - Medications Medications: Current Medications Albuterol Sulfate (Albuterol 0.5% Inhal Hina (2.5 Mg/0.5 Ml) Ud) 2.5 mg IH QID PRN PRN Reason: SHORT OF BREATH Albuterol/Ipratropium (Duoneb 3 Mg/0.5 Mg (3 Ml) Ud) 3 ml IH [id number] [facility] Last Admin: 12/05/16 19:50 Dose: 3 ml Amlodipine Besylate (Norvasc) 5 mg PO DAILY [facility] Last Admin: 12/05/16 09:57 Dose: 5 mg Atorvastatin Calcium (Lipitor) 40 mg PO HS [facility] Last Admin: 12/05/16 21:43 Dose: 40 mg Clonazepam (Klonopin) 0.5 mg PO BID [facility] PRN Reason: Protocol Last Admin: 12/05/16 17:58 Dose: 0.5 mg Docusate Sodium (Colace) 100 mg PO BID [facility] Last Admin: 12/05/16 17:58 Dose: 100 mg Fentanyl (Duragesic) 100 patch TD Q72 [facility] Furosemide (Lasix) 40 mg PO BID [facility] Last Admin: 12/05/16 18:00 Dose: 40 mg Gabapentin (Neurontin) 100 mg PO Q8 [facility] PRN Reason: Protocol Last Admin: 12/05/16 21:43 Dose: 100 mg Guaifenesin/Dextromethorphan (Robitussin Dm) 5 ml PO Q6H PRN PRN Reason: Cough Last Admin: 12/04/16 21:25 Dose: 5 ml Home Med (Home Med) 10 unit PO DAILY [facility] Last Admin: 12/05/16 10:03 Dose: Not Given Home Med (Home Med) 1 unit PO DAILY [facility] Last Admin: 12/05/16 10:02 Dose: Not Given Home Med (Home Med) 500 unit PO BID [facility] Home Med (Home Med) 30 unit PO DAILY [facility] Lorazepam (Ativan) 1 mg PO STAT STA PRN Reason: Protocol Stop: 12/06/16 00:02 Metoclopramide HCl (Reglan) 5 mg PO BID [facility] Last Admin: 12/05/16 18:01 Dose: 5 mg Metoprolol Tartrate (Lopressor) 25 mg PO DAILY [facility] Last Admin: 12/05/16 09:55 Dose: 25 mg Nitroglycerin (Nitro-Dur 0.6 Mg/Hr Patch) 1 patch TD DAILY [facility] Last Admin: 12/05/16 09:56 Dose: 1 patch Oxycodone/Acetaminophen (Percocet 10/325 Mg Tab) 1 tab PO Q6H PRN PRN Reason: severe pain Last Admin: 12/05/16 20:13 Dose: 1 tab Polyethylene Glycol (Miralax) 17 gm PO BID [facility] Last Admin: 12/05/16 18:00 Dose: 17 gm Potassium Chloride (Klor-Con 10) 10 meq PO TID [facility] Last Admin: 12/05/16 17:59 Dose: 10 meq - Labs Labs: PT 10.7 Seconds (9.9-11.8) 12/04/16 08:00 INR 0.99 (0.93-1.08) 12/04/16 08:00 APTT 27.7 Seconds (23.7-30.8) 12/04/16 08:00 - Constitutional Appears: Well, No Acute Distress - Head Exam Head Exam: ATRAUMATIC, NORMAL INSPECTION, NORMOCEPHALIC Additional comments: Obese. - Eye Exam Eye Exam: Normal appearance - ENT Exam ENT Exam: Normal External Ear Exam - Neck Exam Neck Exam: Normal Inspection - Respiratory Exam Respiratory Exam: NORMAL BREATHING PATTERN - Cardiovascular Exam Cardiovascular Exam: absent: JVD - GI/Abdominal Exam GI & Abdominal Exam: absent: Distended - Rectal Exam Rectal Exam: Deferred - Back Exam Back Exam: NORMAL INSPECTION - Neurological Exam Neurological Exam: Alert, Oriented x3 - Psychiatric Exam Psychiatric exam: Anxious - Skin Skin Exam: Normal Color Assessment and Plan - Assessment and Plan (Free Text) Assessment: A/P:Anxious. Elevated blood pressure. Obesity. CHF. HTN. Multiple Myeloma. Ativan 0.5 mg Clonidinie 0.3
[2016-12-06] MEDS: Albuterol-Ipratrop 3 mg / 0.5 (3 ml) UD IH SCH ×7 (06:13→23:41)
--- NOTE | 2016-12-06 08:08 | CON ---
DATE: 12/05/2016 REQUESTING PHYSICIAN: Dr. Elias Daniel. CHIEF COMPLAINT: The patient presented with exacerbation of her COPD. 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 The patient states that she has insomnia. Chest x-ray revealed that t here is a bilateral lower lobe atelectasis. At this time, patient is resting in the bed, lying flat with O2 via nasal cannula and no complaints of increased shortness of breath, cough, wheezing, chest congestion. No fever, chills, nausea, vomiting. PAST MEDICAL HISTORY: As above. ALLERGIES: She has no known allergies. MEDICATIONS: Can be evaluated as per the nurse's intake form. SOCIAL HISTORY: No history of drug abuse. She is a former smoker and she does drink alcohol fairly heavily. FAMILY HISTORY: Noncontributory. REVIEW OF SYSTEMS: CONSTITUTIONAL: All negative. HEENT: The patient has a large neck, but otherwise negative. Within normal limits. RESPIRATORY: All negative. CARDIOVASCULAR: All negative. GASTROINTESTINAL: All negative. GENITOURINARY: All negative. MUSCULOSKELETAL: Has a weakness in the lower extremities. PSYCHIATRIC/NEUROPSYCHIATRIC: All negative. IMMUNOLOGIC: All negative. HEMATOLOGIC: All negative. ENDOCRINE: All negative. PHYSICAL EXAMINATION: VITAL SIGNS: The patient's temperature is 99.5, her pulse is 78, respirations are 20, and BP is 139/ 77. SKIN: Warm and dry. HEAD: Atraumatic, normocephalic. EYES: Reactive to light. EARS, NOSE AND THROAT: Seem to be within normal limits. NECK: Supple, no JVD, no thyroid enlargement, no lymph nodes. HEART: Has a regular rate and rhythm. Normal S1, S2. LUNGS: Reveal decreased breath sounds at the bases with occasional rhonchi. ABDOMEN: Soft, nontender. Decreased bowel sounds. GENITALIA AND RECTAL: Deferred. MUSCULOSKELETAL: No joint deformities. EXTREMITIES: Reveal no significant edema. NEUROLOGIC: The patient has weakness in the lower extremities. LABORATORY DATA: As far as chest x-ray is concerned, it reveals bibasilar atelectasis. Laboratories reveal white count of 4.5, hemoglobin is 10.9, hematocrit 34.6 with platelets of 182,000. Sodium is 143, potassium 3.9, chloride 100, CO2 of 34 with a BUN of 12, creatinine of 1.3, and a glucose of 12 5 1.5. IMPRESSION: This patient has exacerbation of her chronic obstructive pulmonary disease, as well as n oting that she is home oxygen dependent. She has a history of congestive heart failure, multiple mye jamel, lower extremity weakness, anemia and also showing bilateral lower lobe atelectasis, as well as being moved obese. The patient has a possibility of having obstructive sleep apnea as well. PLAN: We will continue with aggressive pulmonary toilet, continue with O2 via nasal cannula. The pa kinza is on albuterol as a bronchodilator. The patient is also scheduled for DuoNeb. The patient is on cough medications, as well as medications for pain. She is getting her blood pressure medication s as well. We will continue with O2 via nasal cannula. Continue to treat aggressively along with [place] other consultants and the primary care doctor. Jeff Galdamez MD cc: [id number] TT: 12/05/2016 23:24:44 Confirmation # [id number] Dictation # [id number]
[2016-12-06] MEDS: DEXILANT 30 MG PO SCH (09:09)
[2016-12-06] MEDS: MOVANTIK 25 MG PO SCH (09:09)
[2016-12-06] MEDS: REVLIMID 10 MG PO SCH (09:10)
[2016-12-06] MEDS: RANEXA 500 MG PO SCH ×2 (09:10→17:01)
[2016-12-06] MEDS: Potassium Chloride 10 mEq ER Tab PO SCH ×3 (09:10→17:01)
[2016-12-06] MEDS: POLYETHYLENE GLYCOL 3350 17 GM/Dose PACKET PO SCH ×2 (09:11→17:01)
--- NOTE | 2016-12-06 09:33 | HP ---
HISTORY OF PRESENT ILLNESS: The patient is a 71-year-old female who presents to the Emergency Room c [facility] of shortness of breath, respiratory distress. She was evaluated and admitted with COPD ex acerbation. She is known to have a past medical history positive for COPD, multiple myeloma which is followed by Dr. 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 She also has a history of hypertension, rico [place], apparently had a seizure about 25 years ago, non-insulin dependent diabetes mellitus, gastroesoph ageal reflux, anxiety, depression, chronic diastolic congestive heart failure, thyromegaly and anemia in the secondary to antral AVMs and gastritis. The patient's onset of shortness of breath was rathe r sudden. She became concerned, presented to the Emergency Room and is admitted. SOCIAL HISTORY: She is a former smoker, former heavy alcoholic drinker; however, denies smoking or d rinking recently. ALLERGIES: She has no known medical allergies. MEDICATIONS: On admission, her medications included Lasix 40 mg twice a day, Neurontin 100 mg every 8 hours, Reglan 5 mg b.i.d., metoprolol tartrate 25 mg daily, Percocet 10/325 every 6 hours as needed , Protonix 40 mg once a day, Ranexa 500 mg twice a day, clonazepam 0.5 mg twice a day, albuterol HFA 4 times a day as needed, DuoNeb nebulizer treatments 4 times a day, Lipitor 40 mg at bedtime, Dexilan t 30 mg daily, fentanyl patch 100 mcg patch every 3 days, Revlimid 10 mg daily. She also wears a tra nsdermal nitroglycerin patch 0.6 mg per hour and calcium chloride 10 mg t.i.d. REVIEW OF SYSTEMS: She complains of pain all over, pain in the back, pain in the legs, pain in the c hest from respiratory distress. She also complains of a headache in the right parietal area. PHYSICAL EXAMINATION: GENERAL: She is awake, alert, and oriented. She appears to be uncomfortable. HEAD, EYES, EARS, NOSE AND THROAT: Unremarkable. NECK: Supple with no lymphadenopathy. The patient is morbidly obese. No goiter could be palpated. LUNGS: On pulmonary auscultation, there is expiratory wheezing bilaterally. HEART: Regular. No murmur is appreciated. ABDOMEN: Obese, soft, nontender. EXTREMITIES: Show +1 to +2 pretibial edema. VITAL SIGNS: Her blood pressure is 154/82, heart rate is 72 and she is afebrile. LABORATORY STUDIES: Revealed the white blood cell count to be 4.5, hemoglobin and hematocrit are 10 .9 and 34.6, respectively, platelet count is 182. Sodium is 143, potassium 3.9, BUN and creatinine a re 12 and 1.3, respectively. Chest x-ray shows bibasilar atelectasis, biapical pleural thickening, c ardiomegaly and spinal orthopedic hardware. This EKG shows regular sinus rhythm. So the patient is admitted. She is placed on DuoNeb nebulizer. Dr. Galdamez, neuropsychiatrist, is called fo r consultation. We will also be asking Dr. Donahue, her oncologist, to follow up with the patient and the patient will be followed closely. Zack Daniel MD cc: [phone] TT: 12/06/2016 09:32:34 tn
[2016-12-06] MEDS: Nitroglycerin 0.6 mg/hr Top Patch TD SCH (09:34)
[2016-12-06 10:44] LABS: HEMATOCRIT 32.1 % (36.0-48.0); MEAN CELL VOLUME 91.5 fL (80.0-105.0); MEAN CORPUSCULAR HEMOGLOBIN 29.1 pg (25.0-35.0); MEAN CORPUSCULAR HGB CONC 31.8 g/dl (31.0-37.0); MEAN PLATELET VOLUME 9.4 fl (7.0-11.0); RED CELL DISTRIBUTION WIDTH 15.1 % (11.5-14.5); WHITE BLOOD COUNT 3.5 10^3/ul (4.5-11.0)
[2016-12-06 10:54] LABS: ALB/GLOB RATIO 1.1 (1.1-1.8); BILIRUBIN,TOTAL 0.6 mg/dL (0.2-1.3); CALCIUM 9.1 mg/dL (8.4-10.5); POTASSIUM 3.8 mmol/L (3.6-5.0); TOTAL PROTEIN 6.3 g/dL (5.8-8.3)
[2016-12-06] MEDS: MethylPREDNISolone 40 mg Vial IVP SCH ×3 (12:18→23:55)
--- NOTE | 2016-12-06 15:35 | PN ---
DATE: 12/06/2016 SUBJECTIVE: The patient is resting in bed, sleeping with O2 via nasal cannula. I woke the patient u p and she stated that she feels much better with the oxygen and the treatment that is being given. N o problems tolerating the CPAP last night and she did sleep with the mask. No chest pain, no increas ed cough or congestion at this time. She did have some wheezing earlier this morning and Solu-Medrol was started. The patient is very comfortable with no respiratory distress at this time. No nausea, vomiting. No chest pain, no abdominal pain, no diarrhea. PHYSICAL EXAMINATION: VITAL SIGNS: Her temperature is 98, pulse of 74, respirations are 20, and BP is 139/92. SKIN: Warm and dry. HEAD: Atraumatic, normocephalic. EYES: Reactive to light. EARS, NOSE AND THROAT: Seem to be within normal limits. NECK: Supple. No JVD, no thyroid enlargement, no lymph nodes. HEART: Has regular rate and rhythm, normal S1, S2. LUNGS: Reveal decreased breath sounds at the bases, no significant rales, rhonchi or wheezing at thi s time. ABDOMEN: Soft, nontender, normal bowel sounds, but obese. GENITALIA AND RECTAL: Deferred. MUSCULOSKELETAL: No joint deformities. EXTREMITIES: Reveal trace lower extremity edema. NEUROLOGIC: She seemed to be grossly intact. LABORATORIES: Her white count is 3.5, hemoglobin is 10.2, hematocrit 32.1 with platelets of 153,000. Sodium is 139, potassium 3.8, chloride 101, CO2 of 30 with a BUN of 20, creatinine of 1.6 and a glu cose of 152. IMPRESSION: The patient has exacerbation of her chronic obstructive pulmonary disease and note that she is home oxygen dependent. She has a history of congestive heart failure, multiple myeloma, lower extremity weakness, anemia and atelectasis at the bases. The patient is obese and wants to be evalu ated for obstructive sleep apnea. PLAN: We will continue with aggressive pulmonary toilet, continue with O2 via nasal cannula and CPAP at bedtime. The patient is getting albuterol as well as DuoNeb and continues to require O2 via nasa l cannula while awake. She has Solu-Medrol 30 mg q. 6 hours and has been started on Zithromax as p.o . antibiotic. We will continue with aggressive pulmonary toilet, continue to treat aggressively hansel john with the other consultants and the primary care doctor. Jeff Galdamez MD cc: [id number] TT: 12/06/2016 15:34:39 Confirmation # [id number] Dictation # [id number]
--- NOTE | 2016-12-06 15:40 | CON ---
DATE: 12/06/2016 REASON FOR CONSULTATION: Known multiple myeloma. HISTORY OF PRESENT ILLNESS: The patient is a 71-year-old female with past medical history significan t for multiple medical problems including COPD, multiple myeloma on Revlimid and Zometa monthly, with stable disease, who presented to the Emergency Room with complaints of worsening shortness of breath and difficulty ambulating. 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 She was recently seen by me in the office and all her myeloma parameters have been stable. She has been in remission from the myeloma on Revlimid daily, as well as Decadron once a week. She has also been having chronic back pain for which she has had MRIs in the past. There is no active cord compression . She is currently being worked up for congestive heart failure as well as COPD and undergoing treat ment for the above. Denies any fevers, night sweats, no other complaints. PAST MEDICAL HISTORY: As above. MEDICATIONS ON ADMISSION: Included Lasix, Neurontin, Reglan, metoprolol, Percocet, Protonix, Ranexa, clonazepam, albuterol, DuoNeb, Lipitor, Dexilant, fentanyl and Revlimid. She is also on a nitropatc h as well as calcium chloride t.i.d. ALLERGIES: She has no known drug allergies. SOCIAL HISTORY: Positive for smoking in the past as well as alcohol abuse in the past. Denies any c urrent smoking or tobacco use. Lives alone. FAMILY HISTORY: Otherwise, noncontributory. REVIEW OF SYSTEMS: Positive for pain and shortness of breath. Otherwise, negative. PHYSICAL EXAMINATION: VITAL SIGNS: Reveal a temperature of 98.0, pulse of 74, respiratory rate of 20, and a blood pressure of 139/92. GENERAL: The patient is an elderly pleasant female lying in bed, in no acute distress. HEAD AND NECK: Normocephalic, atraumatic. EYES: Pupils equal, round, reactive to light and accommodation. Extraocular muscles are intact. Th ere is some pallor, no icterus is noted. NECK: Supple with no adenopathy, no JVD, no thyromegaly. LUNGS: Decreased breath sounds bilaterally at the bases, also some expiratory wheezes are heard. CARDIOVASCULAR: S1, S2 is heard. ABDOMEN: Positive bowel sounds, soft, nontender, nondistended, no organomegaly is palpated. EXTREMITIES: There is no edema, clubbing, or cyanosis. LABORATORY DATA: Her labs reveal a white count of 3.5, hemoglobin 10.2, hematocrit of 32.1, MCV of 9 1.5 and a platelet count of 153. Coag studies are within normal limits. Chemistries reveal a BUN/cr eatinine of 20 and 1.6, otherwise within normal limits. Her chest x-ray done upon admission shows so me bibasilar atelectasis, but there is no active pathology. ASSESSMENT AND PLAN: Elderly female with known multiple myeloma, which is in remission with Revlimid as well as Decadron. Continue Revlimid 10 mg daily. The patient has been notified that she needs t o bring that from home, to notify her son to bring that Revlimid from home so it can be given to her on a daily basis. She is also to continue Decadron 20 mg once a week. Currently admitted with chron ic obstructive pulmonary disease exacerbation. Continue management as per pulmonary. Possible rehab placement as well. Okay to proceed. She will continue her Revlimid daily. Thank you for the consult. We will follow. Robert Donahue MD cc: [id number] TT: 12/06/2016 15:40:18 Confirmation # [id number] Dictation # [id number] sn
[2016-12-07] MEDS: MethylPREDNISolone 40 mg Vial IVP SCH ×3 (05:20→17:14)
[2016-12-07] MEDS: Albuterol-Ipratrop 3 mg / 0.5 (3 ml) UD IH SCH ×5 (08:17→23:16)
[2016-12-07] MEDS: DEXILANT 30 MG PO SCH (09:41)
[2016-12-07] MEDS: RANEXA 500 MG PO SCH ×2 (09:41→19:00)
[2016-12-07] MEDS: POLYETHYLENE GLYCOL 3350 17 GM/Dose PACKET PO SCH ×2 (09:42→17:14)
[2016-12-07] MEDS: Nitroglycerin 0.6 mg/hr Top Patch TD SCH (09:42)
[2016-12-07] MEDS: Potassium Chloride 10 mEq ER Tab PO SCH ×3 (09:43→17:14)
[2016-12-07] MEDS: REVLIMID 10 MG PO SCH (09:59)
[2016-12-07] MEDS: Oxycodone/Acetaminophen 10/325 mg Tab PO PRN ×3 (10:06→22:41)
[2016-12-07] MEDS: MOVANTIK 25 MG PO SCH (10:21)
[2016-12-07 20:02] VITALS: O2SAT 100
[2016-12-08] MEDS: Albuterol-Ipratrop 3 mg / 0.5 (3 ml) UD IH SCH ×3 (20:04→23:20)
[2016-12-08 21:26] LABS: ADD MANUAL DIFF? NO
[2016-12-08 21:41] VITALS: TEMP 98.6
--- NOTE | 2016-12-09 00:01 | CP.PCM.PN ---
Subjective - Date & Time of Evaluation Date of Evaluation: 12/08/16 Time of Evaluation: 23:59 - Subjective Subjective: S: Earlier today when meditech was down, I was asked to order sleeping pill. Patient was seen at bedside. States that she can not sleep. Has no chest pain, sob. Pertinent medical record was reviewed. O:VSS. Obese. Not in distress. LUNGS:Normal breathing pattern. NEURO:Speech normal. A:Adjustment insomnia. P:Benadryl 50 mg PO x 1. Objective - Vital Signs/Intake and Output Vital Signs (last 24 hours): Temp Pulse Resp BP Pulse Ox 98.6 F 62 20 121/64 100 12/08/16 16:00 12/08/16 16:00 12/08/16 16:00 12/08/16 16:00 12/08/16 16:00 Intake and Output: 12/08/16 12/09/16 18:59 06:59 Output Total 800 Balance -800 - Medications Medications: Current Medications Albuterol Sulfate (Albuterol 0.5% Inhal Hina (2.5 Mg/0.5 Ml) Ud) 2.5 mg IH QID PRN PRN Reason: SHORT OF BREATH Albuterol/Ipratropium (Duoneb 3 Mg/0.5 Mg (3 Ml) Ud) 3 ml IH [id number] [facility] Last Admin: 12/08/16 23:20 Dose: Not Given Amlodipine Besylate (Norvasc) 5 mg PO DAILY [facility] Last Admin: 12/07/16 09:43 Dose: 5 mg Atorvastatin Calcium (Lipitor) 40 mg PO HS [facility] Last Admin: 12/08/16 23:39 Dose: 40 mg Azithromycin (Zithromax) 250 mg PO DAILY [facility] PRN Reason: Protocol Last Admin: 12/07/16 09:43 Dose: 250 mg Clonazepam (Klonopin) 0.5 mg PO BID [facility] PRN Reason: Protocol Last Admin: 12/07/16 17:15 Dose: 0.5 mg Docusate Sodium (Colace) 100 mg PO BID [facility] Last Admin: 12/07/16 17:14 Dose: 100 mg Fentanyl (Duragesic) 1 patch TD Q72 [facility] Last Admin: 12/07/16 12:31 Dose: 1 patch Furosemide (Lasix) 40 mg PO BID [facility] Last Admin: 12/07/16 17:15 Dose: 40 mg Gabapentin (Neurontin) 100 mg PO Q8 [facility] PRN Reason: Protocol Last Admin: 12/08/16 23:40 Dose: 100 mg Guaifenesin/Dextromethorphan (Robitussin Dm) 5 ml PO Q6H PRN PRN Reason: Cough Last Admin: 12/04/16 21:25 Dose: 5 ml Home Med (Home Med) 10 unit PO DAILY [facility] Last Admin: 12/07/16 09:59 Dose: Not Given Home Med (Home Med) 1 unit PO DAILY [facility] Last Admin: 12/07/16 10:21 Dose: Not Given Home Med (Home Med) 500 unit PO BID [facility] Last Admin: 12/07/16 19:00 Dose: 500 unit Home Med (Home Med) 30 unit PO DAILY [facility] Last Admin: 12/07/16 09:41 Dose: 30 unit Methylprednisolone (Solu-Medrol) 30 mg IVP Q6 [facility] Last Admin: 12/07/16 17:14 Dose: 30 mg Metoclopramide HCl (Reglan) 5 mg PO BID [facility] Last Admin: 12/07/16 17:14 Dose: 5 mg Metoprolol Tartrate (Lopressor) 25 mg PO DAILY [facility] Last Admin: 12/07/16 09:42 Dose: 25 mg Nitroglycerin (Nitro-Dur 0.6 Mg/Hr Patch) 1 patch TD DAILY [facility] Last Admin: 12/07/16 09:42 Dose: 1 patch Oxycodone/Acetaminophen (Percocet 10/325 Mg Tab) 1 tab PO Q6H PRN PRN Reason: severe pain Last Admin: 12/07/16 22:41 Dose: 1 tab Polyethylene Glycol (Miralax) 17 gm PO BID [facility] Last Admin: 12/07/16 17:14 Dose: 17 gm Potassium Chloride (Klor-Con 10) 10 meq PO TID [facility] Last Admin: 12/07/16 17:14 Dose: 10 meq - Labs Labs: 12/06/16 10:30 12/06/16 10:30 PT 10.7 Seconds (9.9-11.8) 12/04/16 08:00 INR 0.99 (0.93-1.08) 12/04/16 08:00 APTT 27.7 Seconds (23.7-30.8) 12/04/16 08:00
[2016-12-09] MEDS: Albuterol-Ipratrop 3 mg / 0.5 (3 ml) UD IH SCH ×5 (01:15→11:29)
[2016-12-09] MEDS: MethylPREDNISolone 40 mg Vial IVP SCH (05:51)
[2016-12-09] MEDS: Oxycodone/Acetaminophen 10/325 mg Tab PO PRN ×2 (06:06→14:03)
--- NOTE | 2016-12-09 08:56 | PN ---
DATE: 12/08/2016 SUBJECTIVE: The patient was seen this morning in room 361, bed 2, sitting at the edge of th e bed with feet dangling, in no acute distress. Respirations have improved dramatically since she wa s initially seen and admitted by Dr. Daniel on 12/04. She is awake, alert and breathing has impro kassie, although not ideal. PHYSICAL EXAMINATION: She has good air exchange at right and left lungs. I do not hear any wheezing at this point. ASSESSMENT AND PLAN: Consultation note and followup by Dr. Galdamez is appreciated as well as Dr. Donahue who knows her for her underlying diagnosis of multiple myeloma. For now she is continuing IV Solu-Me drol as per directions of pulmonary. She feels relief with her aerosol treatment. Her multiple myel patricia is reportedly in remission with Revlimid as per oncologist and Decadron given once a week. If sh e continues to improve clinically, she should be ready for transfer to subacute rehab facility. I sp gene with patient at length regarding her preference, whether she would prefer to go home or to rehab, and she is requesting a rehab facility, which may be ready as early as tomorrow, pending pulmonary f ollowup. She will be followed by Dr. Daniel over the next few days as I will be away. Elias Daniel MD cc: [id number] TT: 12/09/2016 08:56:25 Confirmation # [id number] Dictation # [id number]
[2016-12-09] MEDS: DEXILANT 30 MG PO SCH (09:18)
[2016-12-09] MEDS: RANEXA 500 MG PO SCH (09:19)
[2016-12-09] MEDS: Potassium Chloride 10 mEq ER Tab PO SCH (09:19)
[2016-12-09] MEDS: REVLIMID 10 MG PO SCH (09:19)
[2016-12-09] MEDS: POLYETHYLENE GLYCOL 3350 17 GM/Dose PACKET PO SCH (09:20)
[2016-12-09] MEDS: Nitroglycerin 0.6 mg/hr Top Patch TD SCH (09:22)
[2016-12-09 09:25] VITALS: BP 124/80; PULSE 272
--- NOTE | 2016-12-09 12:26 | PN ---
DATE: 12/09/2016 The patient is a 71-year-old female who was admitted to the [facility] 12/04 wit h COPD exacerbation. She is known to have a past medical history positive for COPD, multiple myeloma , hypertension, dementia, insulin-dependent diabetes mellitus, gastroesophageal reflux, anxiety and d epression. ALLERGIES: She has no known medical allergies. She is being treated with albuterol medihaler, Colace, DuoNeb nebulizer treatments, Duragesic patch, Klonopin, potassium, Lasix. She is also on medications from home, which include Ranexa 500 mg twice a day and Revlimid 10 mg daily. PHYSICAL EXAMINATION: GENERAL: When seen today, she is lying in bed. This is the first I have seen her without her nasal cannula oxygen. She said it is off because she was recently bathed. She is looking good, feeling go od. LUNGS: Clear anteriorly and laterally. HEART: Regular. VITAL SIGNS: This morning are stable. BLOOD WORK: Last was from 12/06 and it was acceptable. The case was discussed with the physician's payroll human resources assistant. Apparently, she has a room possibly available for subacute rehab at [facility] and the patient may very well be transferred to [facility] late r this afternoon. So as a room becomes available, the patient will be transferred in [facility]. Her medications are to stay the same as prior to hospitalization. Her steroid, prednisone, is cut down from q. 6 to q. 12 hours for the transfer and after her stay at subacute rehab, the patient will be seen as an outpatient in the office. Zack Daniel MD cc: [phone] TT: 12/09/2016 12:25:51 Confirmation # [id number] Dictation # [id number] en
--- NOTE | 2016-12-09 12:39 | IP.NPCORE ---
COPD Progress Note - COPD Progress Note Spirometry Assessment Completed:: No Plan to assess at outpatient follow up: Yes Symptoms:: Increase in Dyspnea, Cough Initial CXR:: Bibas atelectic changes Date:: 12/05/16 Oxygen Saturation/Pulse Oximetry:: 100 Nebulizers Q2-4 hrs:: Duonebs/Albuterol Therapy Antibiotics (Name/Dose/Frequency):: Zithromax 250 mg po daily Systemic Steroids w/ methylprednisolone Name/Dose/Frequency:: solumedrol 30 mg q 12 Oxygen Delivery Method: Nasal Cannula Oxygen Flow Rate: 2 Smoking cessation counseling all stages copd exacerbation: No
[2016-12-09 13:35] LABS: CALCIUM 8.9 mg/dL (8.4-10.5); POTASSIUM 4.7 mmol/L (3.6-5.0)
[2016-12-09 13:36] LABS: ALB/GLOB RATIO 1.2 (1.1-1.8); BILIRUBIN,TOTAL 0.6 mg/dL (0.2-1.3); TOTAL PROTEIN 6.9 g/dL (5.8-8.3)
[2016-12-09 16:19] LABS: GRAN # 6.58 (1.4-6.5); GRAN % 93.6 % (50.0-68.0); HEMATOCRIT 31.9 % (36.0-48.0); LYMPH # 0.3 (1.2-3.4); LYMPH % 4.1 % (22.0-35.0); MEAN CELL VOLUME 89.6 fL (80.0-105.0); MEAN CORPUSCULAR HEMOGLOBIN 29.5 pg (25.0-35.0); MEAN CORPUSCULAR HGB CONC 32.9 g/dl (31.0-37.0); MEAN PLATELET VOLUME 9.8 fl (7.0-11.0); MONO # 0.2 (0.1-0.6); MONO % 2.3 % (1.0-6.0); PLATELET COUNT 196 10^3/uL (120.0-450.0); RED CELL DISTRIBUTION WIDTH 14.6 % (11.5-14.5)
[2016-12-09] MEDS ORDERED: MethylPREDNISolone 40 mg Vial IVP SCH (22:00)
== END 2016-12-09 14:57 | DRG 190 ==
LOC: ED 07:38 → ERH 10:46 → 2RNO 11:53 → 3RNO 12-05 22:51
PROVIDERS: ADMIT Internal Medicine; ATTEND Internal Medicine
DX: J44.1 Chronic obstructive pulmonary disease with (acute) exacerbation (principal); I50.33 Acute on chronic diastolic (congestive) heart failure; Z99.81 Dependence on supplemental oxygen; F03.90 Unspecified dementia, unspecified severity, without behavioral disturbance, psychotic disturbance, mood disturbance, and anxiety; E66.01 Morbid (severe) obesity due to excess calories; C90.01 Multiple myeloma in remission; K21.9 Gastro-esophageal reflux disease without esophagitis; F32.9 Major depressive disorder, single episode, unspecified; J98.11 Atelectasis; I11.0 Hypertensive heart disease with heart failure; D64.9 Anemia, unspecified; E11.9 Type 2 diabetes mellitus without complications; G47.00 Insomnia, unspecified; M54.9 Dorsalgia, unspecified; G89.29 Other chronic pain; R26.2 Difficulty in walking, not elsewhere classified; K59.00 Constipation, unspecified; M19.90 Unspecified osteoarthritis, unspecified site; M47.9 Spondylosis, unspecified; F51.02 Adjustment insomnia; F41.9 Anxiety disorder, unspecified; Z68.37 Body mass index [BMI] 37.0-37.9, adult; Z79.84 Long term (current) use of oral hypoglycemic drugs; Z87.891 Personal history of nicotine dependence